=== PATIENT | female | born 1995 | race Caucasian/White ===

== ENCOUNTER 2024-10-12 12:40 | Emergency (ER) | payer BC, SELFPAY ==
[2024-10-12 12:46] VITALS: BP 155/96
[2024-10-12 13:19] LABS: % Basophils 0.9 % (0-2); % Eosinophils 1.4 % (0-6); % Immature Granulocytes 0.5 % (0-0.5); % Lymphocytes 31.3 % (20.5-51.1); % Monocytes 5.9 % (1.7-9.3); Absolute Basophils 0.1 10^3/uL (0-0.2); Absolute Eosinophils 0.1 10^3/uL (0-0.7); Absolute Lymphocytes 2.1 10^3/uL (1.2-3.4); Absolute Monocytes 0.4 10^3/uL (0.1-0.6); Hemoglobin 13.4 g/dL (12.0-16.0); Mean Corp Hgb Conc. 32.7 g/dL (33.0-37.0); Mean Corpuscular Hgb 28.2 pg (27.0-31.0); Mean Corpuscular Volume 86.3 fL (81.0-99.0); Mean Platelet Volume 10.3 fL (7.4-10.4); Nucleated Red Blood Cells % 0 %; Platelet Count 242 10^3/uL (130-400); Red Blood Cell Count 4.75 10^6/uL (4.20-5.40); Red Cell Dist. Width 13.3 % (11.5-14.5); White Blood Cell Count 6.6 10^3/uL (4.8-10.8)
[2024-10-12 13:26] LABS: HCG, Serum Qualitative Screen Negative
[2024-10-12 13:30] LABS: ALT (SGPT) 20 U/L (0-35); AST (SGOT) 19 U/L (14-36); Albumin 4.2 g/dl (3.5-5.0); Alkaline Phosphatase 48 U/L (38-126); Blood Urea Nitrogen 11 mg/dl (7-17); Calcium 9.4 mg/dl (8.4-10.2); Carbon Dioxide 29 mmol/L (22-30); Chloride 107 mmol/L (98-107); Glucose 102 mg/dl (70-99); Potassium 4.2 mmol/L (3.5-5.1); Sodium 142 mmol/L (135-145); Total Bilirubin 0.5 mg/dl (0.2-1.3); Total Protein 7.3 g/dl (6.3-8.2); eGFR > 60.00
[2024-10-12 14:01] LABS: TSH Reflex To Free T4 2.05 uIU/ml (0.47-4.68)
[2024-10-12 15:32] VITALS: BP 133/88
[2024-10-12] MEDS: ZOFRAN ODT (ORALLY DISINTEGRATING) 4 MG PO (21:15)
--- NOTE | 2024-10-12 21:44 | ED.GENMED ---
History of Present Illness
General
Chief Complaint: Dizziness
Source: patient
Exam Limitations: none
Time Seen by Provider: 10/12/24 18:44
History of Present Illness
History of Present Illness:
28-year-old female presents with dizziness which she describes as a spinning sensation worse with position change. She woke up this morning nauseous and vomited. While at work she felt a pop in the back of her head and developed a headache and
dizziness. The headache is since nearly resolved the dizziness has improved but she still feels off. No fevers. No persistent vomiting but still feels slightly nauseous. No unilateral numbness weakness. No known sick contacts. No other
complaints at this time
Past History
Past History
ED Past Medical History: NIDDM, Hypothyroidism (2 miscarriages) and Other
Social History
Tobacco: Non-smoker
Personal:
Living: with family
Phy Exam
Physical Exam
Physical Exam:
General: Well-appearing female no acute respiratory distress
HEENT: Normocephalic atraumatic pupils equal round reactive to light
Heart: Regular rate and rhythm no murmurs
Lungs: Clear no wheeze neurologic exam: Alert and oriented no facial asymmetry good strength in the upper and lower extremities finger-nose [id number] intact Bonduel-Hallpike slightly positive for reproduction of some symptoms when turning the head to
the right
Musculoskeletal exam: No midline tenderness about the cervical spine.
Course
Orders/Labs/Results
Orders:
Orders
10/12/24 12:42
EKG [Electrocardiogram (*1)] Urgent
Reason for Study: Palpitations
EKG- Treatment ONCE
10/12/24 12:50
Test Result ONCE
10/12/24 12:54
Complete Blood Count/With Diff Urgent
Comprehensive Metabolic Panel Urgent
HCG, Serum Qualitative Screen Urgent
TSH Reflex To Free T4 Urgent
10/12/24 18:53
CT Head W/o Iv Contrast Urgent
Comment:
Reason For Exam: headache, dizzy
10/12/24 20:17
Ondansetron Orally Disint [Zofran Odt (Orally Disintegrating)] 4 mg PO NOW STA
Abnormal Lab Results
10/12/24
12:54
MCHC 32.7 L g/dL
(33.0-37.0)
Glucose 102 H mg/dl
(70-99)
10/12/24 12:54
10/12/24 12:54
Vital Signs
Initial and Last Documented VS:
Initial Vital Signs
Temp Pulse Resp BP Pulse Ox
97.9 F 93 20 155/96 99
10/12/24 12:46 10/12/24 12:46 10/12/24 12:46 10/12/24 12:46 10/12/24 12:46
Last Documented Vital Signs
Temp Pulse Resp BP Pulse Ox
97.9 F 81 17 133/88 99
10/12/24 12:46 10/12/24 19:45 10/12/24 19:45 10/12/24 15:32 10/12/24 15:32
MDM/Problems Addressed
Differential Diagnosis Includes:
Patient described a pop in her head associate with headache and dizziness. CT of the head was ordered to evaluate for intracranial hemorrhage and this was negative. Exam more consistent with vertigo. Etiology of the pop she heard is unclear.
Labs reviewed without significant finding. She was nauseous. She was given Zofran. Observed for period time no further symptoms. Stable for discharge
*Critical Care Note
Total Time (30-74mins, 75-104mins- exclusive of procedures): Not Applicable
ED Attending Note
-
Portions of this chart may have been created with voice recognition software.� Occasional wrong word or��sound alike� substitutions may have occurred due to the inherent limitations of voice recognition software.
Discharge Plan
Departure
Patient Disposition: Home (Routine Discharge)
Date of Disposition: 10/12/24
Time of Disposition: 21:46
Patient with high blood pressure during this ER visit?: No
Discharge Problem:
Vertigo
Instructions: Dizziness, Nonvertigo, (DC)
Referrals:
UNKNOWN - PT DOES,NOT KNOW [Family Provider] -
Activity Restrictions/Additional Instructions:
Return here for worsening symptoms otherwise follow-up with your doctor
Interventions
Interventions:
*Risk Screen - Suicide Last Done: 10/12/24 12:46
*General Assessment Last Done: 10/12/24 12:46
*Neglect/Abuse Screening Last Done: 10/12/24 18:43
*ED- Fall Risk Assessment Last Done: 10/12/24 18:43
*ED COVID-19 Vaccine History Last Done: 10/12/24 18:43
ED- Neurological Assessment Last Done: 10/12/24 18:43
ED- Cardiac Assessment Last Done: 10/12/24 18:43
ED Swallowing Screen Last Done: 10/12/24 18:43
Discharge Date and Time
Print Language: [id number]
[2024-10-12 21:49] VITALS: BP 127/53
== END 2024-10-12 22:17 | disposition home or self-care (01) ==
LOC: EMR 12:40
PROVIDERS: Emergency Medicine; EMERGENCY PHYSICIAN Emergency Medicine
DX: R42 Dizziness and giddiness (principal); E03.9 Hypothyroidism, unspecified; E11.9 Type 2 diabetes mellitus without complications
CPT/HCPCS: 99284; 70450; 80053; 84443; 84703; 85025; 93005